=== PATIENT | female | born 1985 | race Asian ===

== ENCOUNTER 2024-06-14 22:04 | Emergency (ER) | payer SELFPAY ==
[2024-06-14 22:04] VITALS: BMI 42.8
--- NOTE | 2024-06-14 22:15 | PC.NURSE ---
no answer in lobby when called for room in ed
--- NOTE | 2024-06-14 22:32 | PC.NURSE ---
no answer in lobby when called for vital signs
--- NOTE | 2024-06-14 22:46 | PC.NURSE ---
no answer in lobby when called for vital signs
== END 2024-06-14 22:46 | disposition left against medical advice (07) ==
PROVIDERS: Emergency Provider Emergency Medicine
DX: Z53.21 Procedure and treatment not carried out due to patient leaving prior to being seen by health care provider (principal)